=== PATIENT | female | born 2000 | race Caucasian/White ===

== ENCOUNTER 2020-10-10 18:10 | Emergency (ER) | payer OTHER ==
[~2020-10-10] VITALS: Ht 165.1 cm; Wt 54.4 kg
== END 2020-10-10 19:51 | disposition home or self-care (01) ==
LOC: EMR PED 18:10
DX: M94.0 Chondrocostal junction syndrome [Tietze] (principal)

== ENCOUNTER 2023-07-14 23:07 | Emergency (ER) | payer OTHER ==
[~2023-07-14] VITALS: Ht 160 cm; Wt 54.4 kg
[2023-07-15] MEDS ORDERED: ORPHENADRINE CITRATE 30 MG/ML AMPUL IM STA (03:12)
[2023-07-15] MEDS ORDERED: KETOROLAC TROMETHAMINE 60 MG VIAL IM STA (03:12)
[2023-07-15] MEDS ORDERED: KETO10TA2 PO (03:27)
== END 2023-07-15 03:58 ==
LOC: ER 23:07
DX: R07.89 Other chest pain (principal)